=== PATIENT | male | born 1990 | race Caucasian/White ===

== ENCOUNTER 2022-06-21 13:23 | Emergency (ER) | payer MEDICAID ==
[2022-06-21 13:30] VITALS: BP 140/85
[2022-06-21] MEDS ORDERED: PENICILLIN VK 250 MG TABLET PO STA (16:26)
--- NOTE | 2022-06-21 16:31 | ED Physician Documentation ---
History of Present Illness - Stated complaint Stated Complaint: SWELLING IN MOUTH, ABSESS - Chief complaint Chief Complaint: Heent - History obtained from History obtained from: Patient - History of Present Illness Timing: Today Pain level max: 5 Pain level now: 5 - Additonal information Additional information: 31-year-old male is at [facility] for alcohol detox. He states that he noted swelling to his lip and gingiva just above his 2 front teeth. Has a history of caps on these teeth. No fevers. No chills. Nothing seems to make it better or worse. No difficulty speaking or swallowing. No difficulty breathing. Review of Systems Constitutional: denies: Fever, Chills Respiratory: denies: Cough GI: denies: Vomiting, Diarrhea PD PAST MEDICAL HISTORY - Past Medical History Past Medical History: No - Present Medications Home Medications: Ambulatory Orders Medication Instructions Recorded Confirmed Penicillin V Potassium 500 mg PO Q6HR #40 tablet 06/21/22 - Allergies Allergies/Adverse Reactions: Allergies Allergy/AdvReac Type Severity Reaction Status Date / Time No Known Drug Allergies Allergy Verified 06/21/22 13:27 - Living Situation Living Arrangement: reports: At home - Social History Does the pt drink ETOH?: Yes - Family History Family history: reports: Non contributory PD ED PE NORMAL - Vitals Vital signs reviewed: Yes - General General: Alert and oriented X 3, No acute distress - HEENT HEENT: Pharynx benign, Other (Tenderness to palpation along the gingiva just above the front 2 teeth. Mild swelling. No drainable abscess. Otherwise normal intraoral exam. No significant facial swelling or cellulitis.) - Neck Neck: Supple, no meningeal sign - Cardiac Cardiac: RRR - Respiratory Respiratory: No respiratory distress, Clear bilaterally, Other (No stridor or wheezing) - Derm Derm: Warm and dry - Neuro Neuro: Alert and oriented X 3 - Psych Psych: Normal mood, Normal affect Results - Vitals Vitals: Vital Signs - 24 hr 06/21/22 13:27 Temperature 36.8 C Heart Rate 75 Respiratory 16 Rate Blood Pressure 140/85 H O2 Saturation 98 Oxygen O2 Source Room air PD Medical Decision Making - ED course Complexity details: considered differential, d/w patient ED course: No drainable abscess at this time. No airway involvement. Normal phonation. We will start on antibiotics and have him follow-up closely with his dentist. Patient counseled regarding signs and symptoms for which I believe and urgent re-evaluation would be necessary. Patient with good understanding of and agreement to plan and is comfortable going home at this time This document was made in part using voice recognition software. While efforts are made to proofread this document, sound alike and grammatical errors may occur. Departure - Departure Disposition: Home, Self Care Clinical Impression: Pain due to dental caries Condition: Good Instructions: ED Tooth Pain Follow-Up: your,dentist within 3 days [Other] Prescriptions: Penicillin V Potassium 500 mg PO Q6HR #40 tablet Comments: Please follow-up with a dentist within 3 days for repeat evaluation. Please return if you worsen. Please take all antibiotics until gone. Your prescriptions were sent to [facility] in [place] Discharge Date/Time: 06/21/22 16:36
== END 2022-06-21 16:36 | disposition home or self-care (01) ==
LOC: ED 13:23
DX: K02.9 Dental caries, unspecified (principal)
CPT/HCPCS: 99282; 99283; A9270